=== PATIENT | male | born 1955 | race Caucasian/White ===

== ENCOUNTER → 2017-02-28 | Outpatient (CLI) | payer BC ==
[~2017-02-28] MED LIST: LORA10CA2 PO
--- NOTE | 2017-02-28 14:32 | DIAGNOSTIC IMAGING REPORT ---
CT SCAN OF THE PARANASAL SINUSES CLINICAL HISTORY: Chronic sinusitis. COMPARISON STUDY: No priors. TECHNIQUE: High-resolution CT scan of the paranasal sinuses is performed. Images are reviewed in the axial, sagittal, and coronal planes. IV contrast was not administered for this examination. A dose lowering technique was utilized adhering to the principles of ALARA. CT DOSE: 285.25 mGycm FINDINGS: Maxillary antra: Trace dependent mucosal thickening is seen bilaterally. Anterior ethmoid sinuses: Clear. Posterior ethmoid sinuses: Clear. Sphenoid sinuses: Clear. Frontal sinuses: Trace mucosal thickening is seen in the right. Clear on the left. Ostiomeatal complexes: Patent bilaterally. Frontoethmoidal and sphenoethmoidal recesses: Patent bilaterally. Carotid arteries: The carotid arteries are protuberant but covered and without septal attachments. Ethmoid roofs: The ethmoid roofs are symmetric. Nasal turbinates: Normal in appearance. Nasal septum: There is mild rightward deviation of the bony nasal septum. Optic nerves: Covered. Orbits: The bony orbits are intact. Orbital contents are normal in appearance. Calvarium: The skeletal structures are osteopenic. The imaged calvarium is normal in appearance Mastoid air cells: Well pneumatized. Brain parenchyma: Partially visualized brain parenchyma is within normal limits. IMPRESSION: No significant paranasal sinus disease. See above. Electronically signed by: Richard Thompson M.D. 02/28/2017 2:31 PM Dictated Date/Time: 02/28/2017 2:28 PM
== END | disposition home or self-care (01) ==
LOC: C.CTS 13:31
PROVIDERS: ATTEND Otolaryngology
DX: J32.9 Chronic sinusitis, unspecified (principal)

== ENCOUNTER → 2017-03-17 | Day surgery (SDC) | payer BC ==
[2017-03-07 11:26] VITALS: Ht 172.7 cm; Wt 72.7 kg
--- NOTE | 2017-03-16 11:49 | History and Physical: Surg Cnt ---
History & Physical Date Mar 16, 2017. Chief Complaint sinus infection History of Present Illness The patient is a 61 year old male with complaints of chronic sinusitis Past Medical/Surgical History Medical Problems: (1) Pneumonia Additional History Hepatic Disease: No Endocrine Disorder: No Kidney Disease: No Hypertension: No Heart Disease: No Bleeding Tendencies: No Infectious Diseases: No Allergies Coded Allergies: No Known Allergies (Unverified , 03/07/17) Home Medications Scheduled Clarithromycin (Biaxin), 1 TAB PO BID Loratadine (Claritin), 10 MG PO DAILY [Nasonex], 1 DOSE NA PRN Physical Examination Skin: warm/dry, no rash Eyes: normal inspection, EOMI, sclerae normal ENT: normal ENT inspection, pharynx normal Head: normocephalic, atraumatic Neck: supple, no adenopathy, trachea midline Respiratory/Chest: lungs clear, normal breath sounds, no respiratory distress Cardiovascular: regular rate, rhythm, no edema, no murmur Abdomen / GI: normal bowel sounds, non tender Back: normal inspection Extremities: normal inspection, normal range of motion Neurologic/Psych: no motor/sensory deficits, alert, normal reflexes, oriented x 3 Diagnosis chronic sinusitis Plan of Treatment endoscopic sinus surgery
[~2017-03-17] VITALS: Ht 172.7 cm; Wt 72.7 kg
[~2017-03-17] MED LIST changes: +ATROPINE SULFATE 0.1 MG/ML 5ML SYR IV PRN; +CEFAZOLIN 1000MG IV PUSH 5 ML IV SCH; +CLAR500T34 PO; +DEXAMETHASONE SOD INJ 4 MG/ML VIAL ONE; +EpHEDrine SULFATE 50MG/5ML SYR ONE; +EpINEphrine INJ 1MG/ML AMP 1 MG/ML AMP ONE; +FENTANYL CITRATE INJ 50 MCG/1 ML 2 ML VIAL IV PRN; +FENTANYL CITRATE INJ 50 MCG/1 ML 2 ML VIAL ONE; +HYDR-5688 PO; +HYDROCODONE/ACETAMOPHEN 5/325MG TAB PO PRN; +LACTATED RINGER'S 1000ML 1,000 ML IV SCH; +LIDO 2%/EPINEPHRINE 1:100000 20 ML VIAL INFIL ONE; +LIDOCAINE 4% MPF SOAK 5 ML = 1 DOSE TOP ONE; +LIDOCAINE HCL 2% 2 ML VIAL (20MG/ML) ONE; +MIDAZOLAM HCL 1 MG/ML 2ML VIAL ONE; +NASONEX; +ONDANSETRON INJ 2 MG/ML 2 ML VIAL IV PRN; +ONDANSETRON INJ 2 MG/ML 2 ML VIAL ONE; +OXYC-57 PO; +PROPOFOL IV EMULSION 10 MG/ML 20 ML VIAL IV ONE; +SODIUM CHLORIDE 0.9% 1000ML 1,000 ML IV SCH
--- NOTE | 2017-03-17 11:08 | History & Physical Bridge Note ---
H&P Re-Evaluation Bridge Note: I have examined the patient, reviewed the History & Physical and in the interval since the performance of the History & Physical I have noted the following changes of clinical significance: No changes noted
--- NOTE | 2017-03-17 11:54 | Discharge Instructions-SurgCtr ---
Discharge Instructions Date of Service Mar 17, 2017. Visit Reason for Visit: Chronic Sinusitis Discharge Discharge Diagnosis / Problem: same Discharge Goals Goal(s): Improve function, Improve disease control Activity Recommendations Activity Limitations: resume your previous activity Anesthesia . Post Anesthesia Instructions: If you have had General Anesthesia or IV Sedation: * Do not drive today. * Resume driving when surgeon permits. * Do not make important decisions or sign legal documents today. * Call surgeon for: 1. Temperature elevations greater than 101 degrees F. 2. Uncontrollable pain. 3. Excessive bleeding. 4. Persistent nausea and vomiting. 5. Medication intolerance (nausea, vomiting or rash). * For nausea and vomiting use only clear liquids such as: tea, soda, bouillon until nausea subsides, then gradually increase diet as tolerated. * If you have any concerns or questions, call your surgeon's office. If physician is unavailable and it is an emergency, call 911 or go to the nearest emergency room. . Instructions / Follow-Up Instructions / Follow-Up ACTIVITY RECOMMENDATIONS: * Being up and around is good, but no strenuous activity, heavy lifting or physical exertion for one week. * Keep your head elevated 30 degrees when lying down or sleeping. * Do not blow your nose for 48 hours, sniff back instead. * Avoid hot showers. OVER THE COUNTER MEDICATIONS: * You may use Tylenol * Avoid aspirin or aspirin containing products, e.g. as they may increase bleeding. SPECIAL CARE INSTRUCTIONS: * Expect to have bloody drainage from your nose and/or down your throat for one to three days. Change drip pad as needed. * Begin irrigating your nose with saline solution today, at least six to ten times per day and sniff back to help remove old clots or crust. * You may experience nasal and facial congestion, pain and pressure, this is normal. * Please call with any significant and/or progressive pain, redness, swelling around the eyes, visual changes, fever of 101.5 degrees F, active bleeding or any problems or concerns. * If active bleeding occurs, spray the nose three times at one minute intervals with Afrin spray and call or cell phone: . If unable to reach the doctor, go to the nearest Emergency Department. Special Diet: * Avoid extremely hot fluids. FOLLOW UP VISIT: Follow-up Visit with Dr. Guerra If not already scheduled, please call to schedule. Diet Recommendations Home Diet: no limitations Pending Studies Studies pending at discharge: no Medical Emergencies . Who to Call and When: Medical Emergencies: If at any time you feel your situation is an emergency, please call 911 immediately. . Non-Emergent Contact Non-Emergency issues call your: Primary Care Provider . . "Provider Documentation" section prepared by Cata Guerra. . [place] Drug Monitoring Program Search Results: no issues identified
--- NOTE | 2017-03-17 13:28 | OPERATIVE REPORT ---
DATE OF OPERATION: 03/17/2017 PREOPERATIVE DIAGNOSIS: Chronic sinusitis. POSTOPERATIVE DIAGNOSIS: Same. PROCEDURE: Right and left frontal, right and left total ethmoid and right and left maxillary sinus antrostomy. SURGEON: Dr. Guerra. ANESTHESIA: General LMA. COMPLICATIONS: None. BLOOD LOSS: 40 mL. HISTORY OF PRESENT ILLNESS: A 61-year-old gentleman with significant recurrent chronic sinusitis. 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 Because of the persistent sinus infections through the years, patient requested definitive treatment. OPERATION AND FINDINGS: PROCEDURE: The patient brought to the operating room and placed in supine position. General anesthesia was induced using LMA, prepped, draped in usual sterile manner. The nose was decongested using cottonoids with a solution of 4 mL of 4% Xylocaine mixed with 1 mL of epinephrine. Injection 2% Xylocaine 1:100,000 strength epinephrine was also used. [employer] device was calibrated and used for the entire procedure. The left nasofrontal duct was cannulated with guidewire and dilated using the 6 mm balloon with [employer] computer guidance. The guidewire was left in place as a marker for frontal sinusotomy. The frontal sinus was opened by using the shaver coupled with the [employer] device to remove the anterior wall and then the posterior wall of the agger nasi cell, opening up the nasofrontal duct but leaving the mucosa there intact. At this point, total ethmoidectomy was performed. Previously the bullae ethmoidalis had been opened, the ground lamella was opened by using the shaver coupled with the [employer] device. The posterior ethmoid air cells were opened. The posterior most ethmoid air cell was identified. Skull base and lamina papyracea were identified and followed anteriorly exonerating all the posterior and all the anterior ethmoid air cells up to the previously dilated nasal frontal duct. 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 The natural ostia was connected to the antrostomy opening using the seeker and then connecting the 2 openings using the shaver removing the bridge of adhesion and scar tissue and mucosa in between. The right frontal sinusotomy, total ethmoidectomy, and maxillary sinus antrostomy was performed in a similar manner. The Propel stents were placed. These are contour stents, 1 in each nasofrontal duct. The patient tolerated the procedure well and was taken to recovery area in satisfactory condition. I attest to the content of the Intraoperative Record and any orders documented therein. Any exception s are noted below.
[2017-03-17 14:38] VITALS: BP 110/73; PULSE 58; O2SAT 98
--- NOTE | 2017-03-17 14:41 | Anesthesia Progress Nt - [facility] ---
Anesthesia Post Op Note Date & Time Mar 17, 2017 at 14:41 Vital Signs Pain Intensity: 0 Vital Signs Past 12 Hours Date Time Temp Pulse Resp B/P (MAP) Pulse Ox O2 Delivery O2 Flow Rate FiO2 03/17/17 14:38 58 16 110/73 (85) 98 Room Air 03/17/17 13:51 36.3 62 18 108/70 (83) 96 Room Air 03/17/17 13:45 111/71 03/17/17 13:44 36.7 96 Room Air 03/17/17 13:43 65 10 03/17/17 13:43 67 10 96 03/17/17 13:42 63 13 96 03/17/17 13:42 62 13 03/17/17 13:40 117/69 03/17/17 13:37 60 12 98 03/17/17 13:37 60 12 03/17/17 13:35 121/73 03/17/17 13:32 57 7 100 03/17/17 13:32 58 7 03/17/17 13:31 58 11 100 03/17/17 13:31 58 11 03/17/17 13:30 115/73 03/17/17 13:26 56 13 100 03/17/17 13:26 57 13 03/17/17 13:25 123/71 03/17/17 13:21 57 13 100 03/17/17 13:21 55 13 03/17/17 13:20 124/72 03/17/17 13:16 57 9 03/17/17 13:16 57 9 100 03/17/17 13:15 127/71 03/17/17 13:12 57 8 03/17/17 13:12 57 8 123/68 100 03/17/17 13:12 36.4 60 16 123/78 100 Humidified Oxygen Mask 03/17/17 10:35 36.6 60 16 128/82 (97) 99 Room Air Notes Mental Status: alert / awake / arousable, participated in evaluation Pt Amnestic to Procedure: Yes Nausea / Vomiting: adequately controlled Pain: adequately controlled Airway Patency, RR, SpO2: stable & adequate BP & HR: stable & adequate Hydration State: stable & adequate Anesthetic Complications: no major complications apparent
== END | disposition home or self-care (01) ==
LOC: X.SURG 10:25
PROVIDERS: ATTEND Otolaryngology
DX: J32.9 Chronic sinusitis, unspecified (principal); Z79.899 Other long term (current) drug therapy